=== PATIENT | female | born 1990 ===

== ENCOUNTER 2017-04-01 19:21 | Emergency (ER) | payer MEDICAID, OTHER ==
[2017-04-01 19:41] VITALS: BP 128/73; PULSE 67; RESP 18; TEMP 97.9; O2SAT 100
[2017-04-01] MEDS ORDERED: Sodium Chloride 0.9% 1,000 ML IV STA (20:21)
--- NOTE | 2017-04-01 20:25 | ED PDOC ---
HPI: Abdomen Time Seen by Provider: 04/01/17 20:10 Chief Complaint (Nursing): Abdominal Pain Chief Complaint (Provider): Epigastric Pain History Per: Patient History/Exam Limitations: no limitations Onset/Duration Of Symptoms: Days (4) Location Of Pain/Discomfort: Epigastric Associated Symptoms: Nausea, Vomiting. denies: Fever, Diarrhea Additional Complaint(s): Sheila Hull is a 27 y/o female presenting to the ER on 04/01/2017 with complaints of epigastric pain associated with nausea and vomiting for four days. Patient denies any fever or diarrhea. Offers no other medical or physical complaints at this time. Past Medical History Reviewed: Historical Data, Nursing Documentation, Vital Signs Vital Signs: Last Vital Signs Temp 97.9 F 04/01/17 19:37 Pulse 67 04/01/17 19:37 Resp 18 04/01/17 19:37 BP 128/73 04/01/17 19:37 Pulse Ox 100 04/01/17 22:34 - Medical History PMH: No Chronic Diseases - Surgical History Surgical History: No Surg Hx - Family History Family History: States: Unknown Family Hx - Social History Current smoker - smoking cessation education provided: No Alcohol: None Drugs: Denies - Immunization History Hx Tetanus Toxoid Vaccination: No Hx Influenza Vaccination: No Hx Pneumococcal Vaccination: No - Home Medications Home Medications: Ambulatory Orders Medication Instructions Recorded traMADol/Acetaminophen [Ultracet 1 tab PO TID PRN #20 tab 08/23/16 37.5/325 mg] Famotidine [Pepcid] 20 mg PO Q12 #20 tab 04/01/17 Ondansetron [Zofran] 4 mg PO Q8H #10 tab 04/01/17 Sulfamethoxazole/Trimethoprim 1 tab PO BID #20 tab 04/01/17 [Bactrim DS 800 mg-160 mg] - Allergies Allergies/Adverse Reactions: Allergies Allergy/AdvReac Type Severity Reaction Status Date / Time No Known Allergies Allergy Verified 04/01/17 19:37 Review of Systems ROS Statement: Except As Marked, All Systems Reviewed And Found Negative Constitutional: Negative for: Fever Gastrointestinal: Positive for: Nausea, Vomiting, Abdominal Pain. Negative for : Diarrhea Physical Exam - Reviewed Nursing Documentation Reviewed: Yes Vital Signs Reviewed: Yes - Physical Exam Appears: Positive for: Non-toxic, No Acute Distress Head Exam: Positive for: ATRAUMATIC, NORMOCEPHALIC Skin: Positive for: Normal Color. Negative for: Rash Eye Exam: Positive for: Normal appearance, EOMI, PERRL ENT: Positive for: Normal ENT Inspection. Negative for: Pharyngeal Erythema, Tonsillar Exudate, Tonsillar Swelling Neck: Positive for: Normal, Painless ROM, Supple Cardiovascular/Chest: Positive for: Regular Rate, Rhythm. Negative for: Murmur Respiratory: Positive for: Normal Breath Sounds. Negative for: Wheezing, Respiratory Distress Gastrointestinal/Abdominal: Positive for: Tenderness ((+) epigastric ) Extremity: Positive for: Normal ROM. Negative for: Tenderness, Deformity, Swelling Neurologic/Psych: Positive for: Alert, Oriented. Negative for: Motor/Sensory Deficits - Laboratory Results Result Diagrams: 04/01/17 21:25 04/01/17 21:25 - ECG O2 Sat by Pulse Oximetry: 100 Medical Decision Making Medical Decision Makin:10 Initial Impression- 27 y/o female with epigastric pain Initial Plan- * CMP * Urine Dip * Urine Preg * CBC w/ differential * Bentyl 10 mg PO * Pepcid 20 mg IVP * Sodium Chloride 1,000 ml IV * Zofran 4 mg IVP Documented by Dilan Gould, acting as a scribe for Baltazar Chaney MD. All medical record entries made by the Scribe were at my direction and personally dictated by me. I have reviewed the chart and agree that the record accurately reflects my personal performance of the history, physical exam, medical decision making, and the department course for this patient. I have also personally directed, reviewed, and agree with the discharge instructions and disposition. Disposition - Clinical Impression Clinical Impression: Gastritis, UTI (urinary tract infection) - Patient ED Disposition Is Patient to be Admitted: No Counseled Patient/Family Regarding: Studies Performed, Diagnosis, Need For Followup, Rx Given - Disposition Referrals: [facility] [Outside] Disposition: Routine/Home Disposition Time: 22:33 Condition: FAIR Prescriptions: Famotidine [Pepcid] 20 mg PO Q12 #20 tab Ondansetron [Zofran] 4 mg PO Q8H #10 tab Sulfamethoxazole/Trimethoprim [Bactrim DS 800 mg-160 mg] 1 tab PO BID #20 tab Instructions: Gastritis (ED)
[2017-04-01 21:35] LABS: BASO # 0.1 K/uL (0.0-0.2); BASO % 0.8 % (0.0-2.0); EOS # 0.2 K/uL (0.0-0.7); HEMOGLOBIN 12.9 g/dL (12.0-16.0); LYMPH % 25.4 % (20.0-40.0); MEAN CELL VOLUME 91.1 fl (81.0-99.0); MEAN CORPUSCULAR HEMOGLOBIN 30.5 pg (27.0-31.0); MEAN CORPUSCULAR HGB CONC 33.5 g/dL (33.0-37.0); MEAN PLATELET VOLUME 8.2 fl (7.2-11.7); MONO # 0.9 K/uL (0.0-0.8); MONO % 7.4 % (0.0-10.0); NEUT # 7.7 K/uL (1.8-7.0); NEUT % 64.4 % (50.0-75.0); RBC 4.23 Mil/uL (3.80-5.20); RED CELL DISTRIBUTION WIDTH 13.4 % (11.5-14.5); WHITE BLOOD COUNT 11.9 K/uL (4.8-10.8)
[2017-04-01 22:09] LABS: ALB/GLOB RATIO 1.4 (1.0-2.1); ALBUMIN 4.4 g/dL (3.5-5.0); ALT/SGPT 29 U/L (9-52); AST/SGOT 24 U/L (14-36); BLOOD UREA NITROGEN 10 mg/dl (7-17); CALCIUM 9.3 mg/dL (8.4-10.2); GFR AFRICAN-AMERICAN > 60; GFR NON-AFRICAN AMERICAN > 60
== END 2017-04-01 22:38 | disposition home or self-care (01) ==
LOC: H.ER 19:21
DX: K29.70 Gastritis, unspecified, without bleeding (principal); N39.0 Urinary tract infection, site not specified
CPT/HCPCS: 80053; 85025; 87086; 96374; 96375; 99282; J2405; J7040